=== PATIENT | male | born 1945 | race Caucasian/White ===

== ENCOUNTER 2020-08-19 04:06 | Emergency (ER) | payer MEDICARE, OTHER ==
--- NOTE | 2020-08-19 04:50 | EDM.PDOC ---
ED HPI GENERAL MEDICAL PROBLEM - General Chief Complaint: Abdominal Pain Stated Complaint: Low Right Abdominal Pain Time Seen by Provider: 08/19/20 04:25 Source of Information: Reports: Patient History Limitations: Reports: No Limitations - History of Present Illness INITIAL COMMENTS - FREE TEXT/NARRATIVE: c/o RLQ pain x 2d pt reports nagging pain at RLQ at home yesterday, worked outside and felt okay ate ribeye steak and salad for supper and felt okay, to bed at 2a without pain, awoke at 4a with 6/10 pain and N, had "dry heaves" in car on way to ED, pt better now at 3/10, did not take pain meds at home here with pt had similar pain for 4d in April 4m ago, he saw Dr Israel who thought it might be his GB, given pain meds and it went away PSH no abd surgery in past, no hernia surgery PMH he reported a cardiac stent on his last ED visit 8y ago, denied cardiac stent today, htn PCP Dr Gardner, last seen 1m ago, no change in meds then SH: no alc, stopped cigs 20y ago no f/c/d pt and never had COVID, both have had COVID vax last BM 24h ago, described as hard - Related Data Allergies Allergy/AdvReac Type Severity Reaction Status Date / Time seasonal Allergy Sinus Uncoded 08/19/20 04:26 Problems Home Meds: Home Meds Bimatoprost [LUMIGAN 0.01% Ophth Soln] 1 drop OP BEDTIME 01/16/13 [History] amLODIPine [Norvasc] 10 mg PO DAILY 01/16/13 [History] Aspirin [Ecotrin EC] 81 mg PO DAILY 08/19/20 [History] Cetirizine HCl 10 mg PO DAILY 08/19/20 [History] Garlic 1 each PO DAILY 08/19/20 [History] Irbesartan/Hydrochlorothiazide [Irbesartan-Hctz 300-12.5 mg Tb] 1 each PO BID 08/19/20 [History] Multivit-Min/FA/Lycopen/Lutein [Centrum Silver Tablet] 1 each PO DAILY 08/19/20 [History] Sertraline HCl 50 mg PO BID 08/19/20 [History] Simvastatin [Zocor] 10 mg PO DAILY 08/19/20 [History] hydrALAZINE [Apresoline] 10 mg PO DAILY 08/19/20 [History] ED ROS GENERAL - Review of Systems Review Of Systems: See Below Constitutional: Reports: No Symptoms HEENT: Reports: No Symptoms Respiratory: Reports: No Symptoms Cardiovascular: Reports: No Symptoms Endocrine: Reports: No Symptoms GI/Abdominal: Reports: Abdominal Pain, Nausea, Vomiting, Other (hard stool) : Reports: No Symptoms Musculoskeletal: Reports: No Symptoms Skin: Reports: No Symptoms Neurological: Reports: No Symptoms Psychiatric: Reports: No Symptoms Hematologic/Lymphatic: Reports: No Symptoms Immunologic: Reports: No Symptoms ED EXAM, GI/ABD - Physical Exam Exam: See Below Exam Limited By: No Limitations General Appearance: Alert, WD/WN, No Apparent Distress Throat/Mouth: Normal Inspection, Normal Lips, Normal Teeth, Normal Voice, No Airway Compromise Head: Atraumatic, Normocephalic Neck: Normal Inspection, Supple, Non-Tender, Full Range of Motion. No: Lymphadenopathy (R), Lymphadenopathy (L) Respiratory/Chest: No Respiratory Distress, Lungs Clear, Normal Breath Sounds, No Accessory Muscle Use Cardiovascular: Regular Rate, Rhythm, No Edema, No Murmur GI/Abdominal Exam: Other (inc'd adipose tissue without distention per pt, very good BS at RLQ and R flank, no RLQ tender, 1+ tender at R flank and hepatic flexure, nontender at Barriga's point and across upper abd) Back Exam: Normal Inspection, Full Range of Motion Extremities: Normal Inspection, Non-Tender, No Pedal Edema Neurological: Alert, Oriented, CN II-XII Intact, Normal Cognition, No Motor/Sensory Deficits Psychiatric: Normal Affect, Normal Mood Skin Exam: Warm, Dry, Intact, Normal Color, No Rash Lymphatic: No Adenopathy #1 Interpretation EKG Date: 08/19/20 Time: 04:58 Rhythm: NSR P-Wave: Present QRS: LBBB ST-T: Normal QT: Normal (c/w 2012, LBBB then) Comparison: No Change Course - Vital Signs Last Recorded V/S: Last Vital Signs Temp 36.6 C 08/19/20 04:10 Pulse 59 L 08/19/20 05:40 Resp 18 08/19/20 05:40 BP 165/79 H 08/19/20 05:40 Pulse Ox 94 L 08/19/20 05:40 - Orders/Labs/Meds Orders: Active Orders 24 hr Category Date Time Status EKG Documentation Completion [RC] ASDIRECTED Care 08/19/20 04:43 Ordered Abdomen Pelvis wo Cont [CT] Stat Exams 08/19/20 04:48 Ordered Sodium Chloride 0.9% [Saline Flush] Med 08/19/20 05:08 Active 10 ml FLUSH ASDIRECTED PRN EKG 12 Lead [EK] Routine Ther 08/19/20 04:42 Ordered Medication Orders Sodium Chloride (Sodium Chloride 0.9% 10 Ml Syringe) 10 ml FLUSH ASDIRECTED PRN PRN Reason: Keep Vein Open Last Admin: 08/19/20 05:09 Dose: 10 ml Documented by: JERMAINE Labs: Laboratory Tests 08/19/20 08/19/20 08/19/20 Range/Units 04:10 04:54 04:54 WBC 9.2 (3.2-10.1) x10-3/uL RBC 4.67 (3.90-5.90) x10(6)uL Hgb 15.6 (12.9-17.7) g/dL Hct 44.8 (38.3-50.1) % MCV 96.0 (80.8-98.7) fL MCH 33.5 H (27.0-33.3) pg MCHC 34.9 (28.7-35.3) g/dL RDW 12.7 (12.4-15.0) % Plt Count 203 (117-477) x10(3)uL MPV 7.6 (6.7-11.0) fL Neut % (Auto) 78.1 H (40.3-71.8) % Lymph % (Auto) 14.8 L (15.8-45.3) % [place] % (Auto) 5.9 (5.5-15.2) % Eos % (Auto) 0.6 (0.1-6.8) % Baso % (Auto) 0.6 (0.3-3.8) % Neut # (Auto) 7.2 H (1.7-6.9) x10-3/uL Lymph # (Auto) 1.4 (0.5-4.5) x10-3/uL [place] # (Auto) 0.5 (0.0-1.2) x10-3/uL Eos # (Auto) 0.1 (0.0-0.6) x10-3/uL Baso # (Auto) 0.1 (0.0-0.3) x10-3/uL Sodium 140 (135-145) mmol/L Potassium 3.7 (3.5-5.3) mmol/L Chloride 104 (100-110) mmol/L Carbon Dioxide 28 (21-32) mmol/L BUN 24 H (7-18) mg/dL Creatinine 1.3 (0.70-1.30) mg/dL Est Cr Clr Drug Dosing 47.32 mL/min Estimated GFR (MDRD) 54 L (>60) BUN/Creatinine Ratio 18.5 (9-20) Glucose 131 H (80-116) mg/dL Calcium 7.9 L (8.6-10.2) mg/dL Total Bilirubin 0.5 (0.1-1.3) mg/dL AST 27 H (5-25) IU/L ALT 42 H (12-36) U/L Alkaline Phosphatase 111 (56-112) IU/L C-Reactive Protein (0.5-0.9) mg/dL Total Protein 7.0 (6.0-8.0) g/dL Albumin 3.6 (3.2-4.6) g/dL Globulin 3.4 g/dL Albumin/Globulin Ratio 1.1 Lipase (73-393) U/L Urine Color Yellow (YELLOW) Urine Appearance Slightly cloudy (CLEAR) Urine pH 5.0 (5.0-6.5) Ur Specific [place] 1.030 H (1.010-1.025) Urine Protein Negative (NEGATIVE) mg/dL Urine Glucose (UA) Normal (NORMAL) mg/dL Urine Ketones Negative (NEGATIVE) mg/dL Urine Occult Blood Large H (NEGATIVE) Urine Nitrite Negative (NEGATIVE) Urine Bilirubin Negative (NEGATIVE) Urine Urobilinogen Normal (NEGATIVE) mg/dL Ur Leukocyte Esterase Negative (NEGATIVE) Urine RBC 30-40 H (0-5) Urine WBC 0-5 (0-5) Ur Squamous Epith Cells Occasional (NS,R,O) Urine Bacteria Few H (NS) 08/19/20 Range/Units 04:54 WBC (3.2-10.1) x10-3/uL RBC (3.90-5.90) x10(6)uL Hgb (12.9-17.7) g/dL Hct (38.3-50.1) % MCV (80.8-98.7) fL MCH (27.0-33.3) pg MCHC (28.7-35.3) g/dL RDW (12.4-15.0) % Plt Count (117-477) x10(3)uL MPV (6.7-11.0) fL Neut % (Auto) (40.3-71.8) % Lymph % (Auto) (15.8-45.3) % [place] % (Auto) (5.5-15.2) % Eos % (Auto) (0.1-6.8) % Baso % (Auto) (0.3-3.8) % Neut # (Auto) (1.7-6.9) x10-3/uL Lymph # (Auto) (0.5-4.5) x10-3/uL [place] # (Auto) (0.0-1.2) x10-3/uL Eos # (Auto) (0.0-0.6) x10-3/uL Baso # (Auto) (0.0-0.3) x10-3/uL Sodium (135-145) mmol/L Potassium (3.5-5.3) mmol/L Chloride (100-110) mmol/L Carbon Dioxide (21-32) mmol/L BUN (7-18) mg/dL Creatinine (0.70-1.30) mg/dL Est Cr Clr Drug Dosing mL/min Estimated GFR (MDRD) (>60) BUN/Creatinine Ratio (9-20) Glucose (80-116) mg/dL Calcium (8.6-10.2) mg/dL Total Bilirubin (0.1-1.3) mg/dL AST (5-25) IU/L ALT (12-36) U/L Alkaline Phosphatase (56-112) IU/L C-Reactive Protein 0.6 (0.5-0.9) mg/dL Total Protein (6.0-8.0) g/dL Albumin (3.2-4.6) g/dL Globulin g/dL Albumin/Globulin Ratio Lipase 209 (73-393) U/L Urine Color (YELLOW) Urine Appearance (CLEAR) Urine pH (5.0-6.5) Ur Specific [place] (1.010-1.025) Urine Protein (NEGATIVE) mg/dL Urine Glucose (UA) (NORMAL) mg/dL Urine Ketones (NEGATIVE) mg/dL Urine Occult Blood (NEGATIVE) Urine Nitrite (NEGATIVE) Urine Bilirubin (NEGATIVE) Urine Urobilinogen (NEGATIVE) mg/dL Ur Leukocyte Esterase (NEGATIVE) Urine RBC (0-5) Urine WBC (0-5) Ur Squamous Epith Cells (NS,R,O) Urine Bacteria (NS) Meds: Medications Generic Name Dose Route Start Last Admin Trade Name Freq PRN Reason Stop Dose Admin Sodium Chloride 10 ml 08/19/20 05:08 08/19/20 05:09 Sodium Chloride 0.9% 10 Ml Syringe FLUSH 10 ml ASDIRECTED PRN Administration Keep Vein Open Discontinued Medications Generic Name Dose Route Start Last Admin Trade Name Freq PRN Reason Stop Dose Admin Ketorolac Tromethamine 15 mg 08/19/20 04:55 08/19/20 05:08 Ketorolac 30 Mg/Ml Sdv IVPUSH 08/19/20 04:56 15 mg ONETIME ONE Administration - Re-Assessments/Exams Free Text/Narrative Re-Assessment/Exam: 08/19/20 07:09 has had kidney stones, pt has had no prior h/o kidney stones he has a 12 cm asxs stone at L UVJ and 1 cm sxs stone at R UVJ, mild hydro on R and mod hydro on L pt works with [employer] in [place] and will need to see urology pt pain free here after Toradol Departure - Departure Time of Disposition: 07:01 Disposition: Home, Self-Care 01 Condition: Good Clinical Impression: Right ureteral calculus, Left ureteral calculus, Staghorn renal calculus, Hydronephrosis due to obstruction of ureter - Discharge Information *PRESCRIPTION DRUG MONITORING PROGRAM REVIEWED*: Not Applicable *COPY OF PRESCRIPTION DRUG MONITORING REPORT IN PATIENT BRANDT: Not Applicable Referrals: Merrick Gardner MD [Primary Care Provider] - Forms: ED Department Discharge Additional Instructions: There is a 1 mm stone in the right ureter where it joins the bladder. There is a 12 mm stone in the left ureter where it joins the bladder. There is a 19 mm partial staghorn stone in the left kidney as well as several smaller stones. There is mild blockage (back up) of urine on the right side and moderate blockage on the left. Use a strainer when you empty your bladder and save any stone that passes. Increase fluids. For pain, take ibuprofen 200 mg 2 tabs every 4-6 hours as needed. If you have pain that you cannot control at home or develop fever or other new symptoms, return to the Emergency Department. Contact Dr Gardner in 2 days on Friday morning for urology referral. Sepsis Event Note (ED) - Evaluation Sepsis Screening Result: No Definite Risk - Focused Exam Vital Signs: Vital Signs Temp Pulse Resp BP Pulse Ox 08/19/20 05:40 59 L 18 165/79 H 94 L 08/19/20 04:10 36.6 C 58 L 20 179/84 H 96 - My Orders Last 24 Hours: My Active Orders 08/19/20 04:42 EKG 12 Lead [EK] Routine 08/19/20 04:43 EKG Documentation Completion [RC] ASDIRECTED 08/19/20 04:48 Abdomen Pelvis wo Cont [CT] Stat 08/19/20 05:08 Sodium Chloride 0.9% [Saline Flush] 10 ml FLUSH ASDIRECTED PRN - Assessment/Plan Last 24 Hours: My Active Orders 08/19/20 04:42 EKG 12 Lead [EK] Routine 08/19/20 04:43 EKG Documentation Completion [RC] ASDIRECTED 08/19/20 04:48 Abdomen Pelvis wo Cont [CT] Stat 08/19/20 05:08 Sodium Chloride 0.9% [Saline Flush] 10 ml FLUSH ASDIRECTED PRN
[2020-08-19] MEDS ORDERED: Ketorolac 30 MG/ML SDV IVPUSH ONE (04:55)
[2020-08-19] MEDS ORDERED: Sodium Chloride 0.9% 10 ML Syringe FLUSH PRN (05:08)
[2020-08-23 01:26] VITALS: BP 167/79; PULSE 58
== END 2020-08-19 07:25 | disposition home or self-care (01) ==
LOC: FB.ED 04:06
DX: N13.2 Hydronephrosis with renal and ureteral calculous obstruction (principal); Z91.048 Other nonmedicinal substance allergy status; Z79.82 Long term (current) use of aspirin; Z79.899 Other long term (current) drug therapy
CPT/HCPCS: 36415; 74176; 80053; 81001; 83690; 85025; 86140; 93005; 96374; 99284; J1885

== ENCOUNTER 2024-11-23 15:26 | Emergency (ER) | payer MEDICARE, OTHER ==
[2024-11-23 16:37] LABS: BASOPHILS ABSOLUTE AUTO 0.0 x10-3/uL (0.0-0.3); BASOPHILS PERCENT AUTO 0.5 % (0.3-3.8); BLOOD UREA NITROGEN,BUN 18 mg/dL (7-18); CARBON DIOXIDE,CO2 28 mmol/L (21-32); CHLORIDE,CL 105 mmol/L (100-110); CREATININE 1.1 mg/dL (0.70-1.30); EOSINOPHILS ABSOLUTE AUTO 0.1 x10-3/uL (0.0-0.6); EOSINOPHILS PERCENT AUTO 2.1 % (0.1-6.8); EST CRCL DRUG DOSING (CG) 50.84 mL/min; ESTIMATED GFR 69 mL/min (>60); GLUCOSE RANDOM 103 mg/dL (80-116); LYMPHOCYTES ABSOLUTE AUTO 2.2 x10-3/uL (0.5-4.5); LYMPHOCYTES PERCENT AUTO 31.5 % (15.8-45.3); MEAN PLATELET VOLUME 7.6 fL (6.7-11.0); MONOCYTES ABSOLUTE AUTO 0.6 x10-3/uL (0.0-1.2); MONOCYTES PERCENT AUTO 9.0 % (5.5-15.2); NEUTROPHILS ABSOLUTE AUTO 3.9 x10-3/uL (1.7-6.9); NEUTROPHILS PERCENT AUTO 56.9 % (40.3-71.8); PLATELET COUNT,PLT 234 x10(3)uL (117-477); POTASSIUM,K 3.8 mmol/L (3.5-5.3); RED BLOOD CELL COUNT 5.04 x10(6)uL (3.90-5.90); RED CELL DISTRIBUTION WIDTH 12.9 % (12.4-15.0); SODIUM,NA 140 mmol/L (135-145); WHITE BLOOD CELL COUNT,WBC 6.9 x10-3/uL (3.2-10.1)
[2024-11-23 16:43] LABS: A/G RATIO 1.1; ALANINE AMINOTRANSFERASE,ALT 34 U/L (12-36); ASPARTATE AMNIOTRANSFERASE,AST 33 IU/L (5-25); BILIRUBIN TOTAL 1.0 mg/dL (0.1-1.3); PROTEIN TOTAL,TP 7.4 g/dL (6.0-8.0)
[2024-11-23 17:36] VITALS: BP 174/89; PULSE 64
== END 2024-11-23 17:45 | disposition home or self-care (01) ==
LOC: FB.ED 15:26
DX: G47.33 Obstructive sleep apnea (adult) (pediatric) (principal); R60.0 Localized edema; I10 Essential (primary) hypertension; M19.90 Unspecified osteoarthritis, unspecified site; Z79.899 Other long term (current) drug therapy; Z79.82 Long term (current) use of aspirin; Z88.8 Allergy status to other drugs, medicaments and biological substances; Z87.890 Personal history of sex reassignment
CPT/HCPCS: 36415; 71045; 80053; 83880; 84484; 85025; 93005; 93010; 99284; 99285